=== PATIENT | female | born 1970 | race Caucasian/White ===

== ENCOUNTER 2019-11-22 19:12 | Emergency (ER) | payer OTHER, BC, SELFPAY ==
[2019-11-22 19:12] VITALS: BP 184/105; PULSE 79; RESP 18; TEMP 36.7; O2SAT 98; BMI 27.6
--- NOTE | 2019-11-22 20:54 | ED.VISSUMM ---
- ER Visit Summary Date of Service: 11/22/19 Chief Complaint: Right hand pain History of Present Illness: The patient is a 49 F who presents with right hand pain that has been constant for the past 3 months. Patient states she felt a pop while she was cutting meat. Patient states this happened while at work. Patient states the pain is been persistent. Patient has been using ice. Patient has been taking Tylenol with no improvement. Patient states her pain is aching but is sharp with certain movements and grasping things. Patient denies any paresthesias. Patient admits to weakness due to the pain. Physical Examination: Vital signs are stable. Patient is afebrile. Patient is in no acute distress. Musculoskeletal exam reveals tenderness and edema over the right third MCP joint. There is no erythema or warmth. There is no discharge or drainage. There is tenderness to palpation. There is no deformity noted. Range of motion was limited in all motions of the MP, PIP, and DIP joints of the right middle finger secondary to pain. Capillary refill was less than 2 seconds in all digits. Sensation was intact to light touch in all digits. Radial pulses are equal bilaterally. Test Results: X-rays of the right hand were obtained. There is no acute abnormality. This was interpreted by the radiologist and myself. Emergency Department Course and Treatment: Patient was given an AlumaFoam finger splint. Patient was instructed to ice and elevate the right hand. Patient was given restrictions for work. Patient was instructed to follow-up with a primary care physician or workman's comp physician. Patient understood and was agreeable with the plan. All questions were answered. Disposition: Discharge home Impression: Right hand pain This note was generated with [employer] dictation software. It may contain incorrect words, spelling, and punctuation that were not noted in review of the chart prior to signing ED Disposition - Plan for ED Patient: Disposition: Home or Assisted Living Diagnosis: Right hand pain Instructions: ED Acute Pain [facility] Referrals: NOT,DEFINED [NON-STAFF] - Gabriel Chandler DO [NON CLINICAL AFFILIATE] - 5-7 Days [facility] [GROUP OF PHYSICIANS] - 5-7 Days
--- NOTE | 2019-11-22 21:01 | RAD_ITS ---
STUDY: X-RAY - RIGHT HAND REASON FOR EXAM: Female, 49 years old. PAIN IN HAND FOR MONTHS, MOSTLY AROUND MIDDLE FINGER, SWELLING TECHNIQUE: 3 view(s) of the hand. COMPARISON: None. FINDINGS: Normal radiocarpal articulation. Normal distal radioulnar joint. Normal visualized carpal bones. Normal carpal articulations Normal carpometacarpal articulation of the thumb. Normal second through fifth carpometacarpal joints. Normal metacarpi. Normal metacarpophalangeal joint of the thumb. Normal interphalangeal joint of the thumb. Normal proximal and distal phalanges of the thumb. Normal metacarpophalangeal joints of the second through fifth fingers. Normal proximal interphalangeal joints of the second through fifth fingers. Mild degenerative changes of the DIP joints of the third through fifth digits Normal phalanges of the second through fifth fingers. The soft tissue structures are unremarkable. RAD/Hand Min 3 Views IMPRESSION: Mild degenerative changes. No acute fracture or other significant bony pathology Electronically Signed: Arthur Washington MD at 21:21 EDT , Service support ,
== END 2019-11-22 23:28 | disposition home or self-care (01) ==
PROVIDERS: Emergency Provider Emergency Medicine
DX: M79.641 Pain in right hand (principal); K21.9 Gastro-esophageal reflux disease without esophagitis
CPT/HCPCS: 73130; 99283

== ENCOUNTER → 2019-12-03 12:24 | Outpatient (CLI) | payer OTHER, SELFPAY ==
[2019-11-27 15:46] VITALS: BMI 27.6
--- NOTE | 2019-12-03 12:25 | MRI_ITS ---
STUDY: MRI RIGHT HAND REASON FOR EXAM: Right hand pain, right middle finger pain and swelling, history of cyst removal. TECHNIQUE: Standardized fat and water weighted pulse sequences were obtained in all 3 orthogonal planes. COMPARISON: Radiographs 11/22/2019. FINDINGS: FIRST DIGIT: Normal visualized first metacarpus. Normal metacarpophalangeal joint. Normal interphalangeal joint. Normal proximal, and distal phalanges. Normal flexor and extensor tendons. There is no soft tissue abnormality. SECOND DIGIT: Normal visualized second metacarpus. Normal metacarpophalangeal joint. Normal proximal and distal interphalangeal joints. Normal proximal, middle and distal phalanges. Normal flexor and extensor tendons. There is no soft tissue abnormality. THIRD DIGIT: Normal visualized third metacarpus. Normal metacarpophalangeal joint. Normal proximal interphalangeal joint. There is mild chondral thinning of the third distal interphalangeal joint (T2 sagittal image 24). Normal proximal, middle and distal phalanges. Normal flexor and extensor tendons. There is a small ganglion cyst at the palmar ulnar aspect of the flexor tendon sheath of the third digit at the level of the proximal phalangeal base (inversion recovery coronal images 7, 8; inversion recovery axial images 19, 20) measuring 0.15 x 0.8 x 0.7 cm (AP x transverse x length). FOURTH DIGIT: Normal visualized fourth metacarpus. Normal metacarpophalangeal joint. Normal proximal and distal interphalangeal joints. Normal proximal, middle and distal phalanges. Normal flexor and extensor tendons. There is a small ganglion cyst at the dorsal aspect of the flexor tendon sheath of the fourth digit at the level of the proximal phalangeal neck (inversion recovery coronal image 8; inversion recovery axial image 26) measuring 0.2 x 0.35 x 0.4 cm (AP x transverse x length). FIFTH DIGIT: Normal visualized fifth metacarpus. Normal metacarpophalangeal joint. Normal proximal interphalangeal joint. There is chondral thinning of the fifth proximal interphalangeal joint with subchondral cysts (T2 sagittal image 5). Normal proximal, middle and distal phalanges. Normal flexor and extensor tendons. There is no soft tissue abnormality. Normal visualized thenar and hypothenar muscles. Normal lumbricalis and interosseous muscles. MRI/Upper Ext/No Jt/ wo IMPRESSION: Small ganglion cyst of the flexor tendon sheath of the third digit. Small ganglion cyst of the flexor tendon sheath of the fourth digit. 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 Electronically Signed: Chinedu Watt MD at 13:48 EDT Tel , Service support ,
== END ==
PROVIDERS: Referring Provider Physician Assistant; Visit Provider Physician Assistant
DX: M79.641 Pain in right hand (principal)
CPT/HCPCS: 73218

== ENCOUNTER 2020-01-31 22:56 | Emergency (ER) | payer BC, SELFPAY ==
[2020-01-22 09:56] VITALS: BMI 27.6
[2020-01-31 22:56] VITALS: BP 188/130; PULSE 84; RESP 16; TEMP 36.3; O2SAT 99; BMI 28.1
--- NOTE | 2020-01-31 23:12 | ED.VIS.GEN ---
History of Present Illness Chief Complaint: Fall Narrative: This is a generally healthy 49-year-old female who presents after a fall. She tripped over the curb. She hit her right forearm and left knee. She has an abrasion over the anterior left knee. She also has swelling of the right forearm. Her friend was concerned this might be a blood clot, so brought her in to be checked. Past Medical History - Allergies and Home Meds Allergies/Adverse Reactions: Allergies No Known Allergies Allergy (Verified 01/31/20 22:58) Primary Care Physician: Care Physician,No Primary [Primary Care Provider] - Past Medical History: None Smoking Status: Current every day smoker Review of Systems All systems negative except as indicated General: Denies: Fever Cardiovascular: Denies: Chest pain Respiratory: Denies: Dyspnea Gastrointestinal: Denies: Abdominal pain Musculoskeletal: Reports: Extremity Pain. Denies: Back pain Neurological: Denies: Headache Physical Exam Vital Signs/Narrative: Vital Signs Temp Pulse Resp BP Pulse Ox 01/31/20 22:56 97.3 F L 84 16 188/130 H 99 Inital Vital Signs reviewed: Yes General: Well nourished Head: Normocephalic Eyes: EOMI ENT: Moist mucous membranes Neck: Supple Cardiovascular: Regular rate Respiratory: No distress Extremities: - - Patient has a hematoma over the mid right forearm, she has no pain with range of motion of the forearm elbow or wrist, no focal bony tenderness, there is an abrasion over the proximal anterior lower leg distal to the knee she has no knee tenderness no pain with range of motion Skin: Normal color Neurological: Alert Psychological: Normal affect Diagnostic/Tx/Re-eval - Medical Decision Making Patient states she was mainly here just to be checked for the hematoma. I do not believe x-rays are indicated. She was advised on supportive care including rest ice elevation. All questions answered at bedside, patient agreeable to this plan. Patient discharged. She was given a tetanus immunization booster here. ED Disposition - Plan for ED Patient: Disposition: Home or Assisted Living Diagnosis: Hematoma, Abrasion Instructions: ED Abrasion, ED Hematoma Referrals: Care Physician,No Primary [Primary Care Provider] -
[2020-01-31] MEDS: Diphth,Pertuss(Acell),Tet Vac 0.5 ML Vial IM (23:38)
== END 2020-01-31 23:54 | disposition home or self-care (01) ==
LOC: ED 23:18
PROVIDERS: Emergency Provider Emergency Medicine
DX: S50.11XA Contusion of right forearm, initial encounter (principal); S80.212A Abrasion, left knee, initial encounter; F17.200 Nicotine dependence, unspecified, uncomplicated; W01.0XXA Fall on same level from slipping, tripping and stumbling without subsequent striking against object, initial encounter
CPT/HCPCS: 90471; 90715; 99282

== ENCOUNTER 2020-02-07 09:30 | Outpatient (RCR) | payer OTHER, SELFPAY ==
[2020-01-01 09:58] VITALS: BMI 27.6
[2020-01-10 12:50] VITALS: BMI 27.6
--- NOTE | 2020-01-15 10:25 | HP.OTEVAL ---
Patient's Visit Information TOYIN QUINONEZ is a 49 year old F, referred to Occupational Therapy by GENE Amezcua, with a diagnosis of right MF sprain/ right hand pain. Date of Evaluation: 01/15/20 Occupational Therapist: Brooklyn Garcia, NICOLER/Daniela, CHT - Subjective This 49 year old female was seen for OT eval with dx of right MF pain- pt states she felt something odd in her finger in Feb. pt states she put it off and her finger did not get better- pt states she does ice on PRN basis. pt reports she does not have pain with her BADLs at this time. pt states she has not been back to work in three weeks. states she does not have a return to work date set at this time. - Pain right MF 0 Pain Intensity Range: 0, 1, 4 - ROM MP: right MF 0/90 PIP: right Mf 0/105 DIP: right MF 0/65 ROM Comments: pt demo ROM WNL. pt demo with increase right MF MCP mobility comparied to left with pain on ulnar side of MCP region - Strength Bpm Analyst: right 45# left 65# Lateral Pinch: right 10# left 12# Tripod Pinch: right 10# left 13# Tip-to-Tip Pinch: right 8# left 10# Strength Comments: pt demo with a decrease in right retail pricing coordinator and pinch strength - Edema Proximal Phalanx: right 20cm left 19cm - Sensation Sensation Comments: denies - Quick DASH-Disab of Arm,Shoulder& Hand Quick DASH Score: 45.0000 - Goals Goal:: Pt will demo a increase in right retail pricing coordinator strength by 15# to increase pts ind. with ADLS and IADLs by d/c Goal:: pt will report no pain greater than 1/10 with use of right UE with ADls and IADLS by d/c Goal:: edema will measure at a .5 cm reduction by d.c Goal:: pt will demo increase in right MF MCP joint stability by d/c. pt will demo understanding of use of k-tape for support by end of 2nd visit - Rehabilitation General Assessment: Pt demo with edema over right MF MCP region a increase in right MF MCP instability and a decrease in right retail pricing coordinator strength. Pt is limited with use of right hand for ADLs and IADLs and would benfit from skilled OT services 2-3x week for 12 visits. Today therapist instructed pt in use of k-tape and ice to decrease edema. Therapist will progress pt with PRE to gain strength as pt marilee to return pt to PLOF. pt agree to POC Rehabilitation Potential: Good - Anticipated Interventions Strengthening, Edema Control, Triggerpoint Release, Modalities, Orthoses, Joint Protection/Energy Conservation, Ergonomic Education - Visit Plan Frequency: 2-3x /Week Duration: 4 Weeks TEXT: Thank you for the opportunity to evaluate your patient. For Medicare and Medicare HMO plans, please review the plan of care and approve it. It will need to be FAXED BACK to us at [phone] for Medicare purposes. Please let me know if there are questions or concerns regarding this plan of care. Physician Signature: Date:
--- NOTE | 2020-02-07 10:13 | HP.OTDCSUM ---
It has been my pleasure to treat TOYIN QUINONEZ under orders from GENE Amezcua, for the diagnosis of right MF sprain/ right hand pain for a total of 10 visit(s). Please see the following information for a summary of their discharge status. % Improvement: 95 Objective/Function: R human resources representative 60#. Lateral pinch 10#. Tripod pinch 10#. pt demo the ability to form a composite fist without pain - pt reports ind with ADLS and IADLS at this time Patient Goals: Regain Strength, Decrease Swelling/Stiffness, Use Hand/Wrist/Arm Normally Again, Be More Independent in ADLS Goal:: Pt will demo a increase in right human resources representative strength by 15# to increase pts ind. with ADLS and IADLs by d/c Goal:: pt will report no pain greater than 1/10 with use of right UE with ADls and IADLS by d/c Goal:: edema will measure at a .5 cm reduction by d.c Goal:: pt will demo increase in right MF MCP joint stability by d/c. pt will demo understanding of use of k-tape for support by end of 2nd visit Plan: discharge Discharge Comments: pt has been seen for 10 OT visits. Pt reports she is 95% better and will return to work next week. Pt has demo the ability to form a composite fist with no pain. pt has met OT goals and D/C at this time. If there are questions or concerns regarding this patient's occupational therapy, please fell free to call me at [phone]. Thank you for the referral of this patient. Sincerely, Brooklyn Garcia, OTR/L, CHT
== END 2020-02-07 19:00 | disposition home or self-care (01) ==
LOC: OT 09:30
PROVIDERS: Referring Provider Physician Assistant; Visit Provider Physician Assistant
DX: S63.612D Unspecified sprain of right middle finger, subsequent encounter (principal)
CPT/HCPCS: 97035; 97110; 97140; 97166; 97530

== ENCOUNTER 2020-04-14 20:40 | Emergency (ER) | payer BC, SELFPAY ==
[2020-02-26 08:59] VITALS: BMI 28.1
[2020-04-14 20:40] VITALS: BP 115/69; PULSE 83; RESP 18; TEMP 36.2; O2SAT 98; BMI 29.6
[2020-04-14 20:48] VITALS: TEMP 36.2; BMI 29.6
--- NOTE | 2020-04-14 20:51 | ED.VIS.GEN ---
History of Present Illness Chief Complaint: Allergic Reaction Informant: Patient Onset: Today Context: Sudden Onset Timing: Continuous Current Severity: Moderate Maximum Severity: Moderate Narrative: The patient is a 49-year-old female with recent diagnosis of hypertension who was started on lisinopril that presents to the emergency department concern for allergic reaction. Patient states she has been in her normal state of health. She states that she and her friend had eaten cauliflower pizza. She states she sat before without issue. Shortly thereafter, she noticed that her face was burning. She had the band develop significant urticarial rash of her face, neck, and upper arms. She states that she was having dry mouth and was feeling lightheaded. She states she is never had reaction like this before. She denies any trouble speaking or swallowing. She denies any throat swelling or shortness of breath. She is had no nausea or vomiting. She denies any other new exposures. Prior similar symptoms: No Recent Illness/Hospitalization: No Past Medical History - Allergies and Home Meds Allergies/Adverse Reactions: Allergies No Known Allergies Allergy (Verified 02/26/20 08:59) Primary Care Physician: Care Physician,No Primary [NON-STAFF] - Prior records reviewed: Yes Past Medical History: - - Hypertension Surgical History: noncontributory Smoking Status: Never smoker Review of Systems General: Denies: Chills, Fever, Sweats Eyes: Denies: Visual changes - bilaterally, Diplopia ENT: Denies: Rhinorrhea, Sore throat Cardiovascular: Denies: Chest pain, Palpitations Respiratory: Denies: Dyspnea, Cough, Dyspnea on exertion Gastrointestinal: Denies: Abdominal pain, Nausea, Vomiting, Diarrhea, Melena, Hematochezia Genitourinary: Denies: Dysuria, Hematuria, Frequency Musculoskeletal: Denies: Back pain, Extremity Pain Skin: Reports: Rash. Denies: Wounds Neurological: Denies: Headache, Weakness, Numbness Physical Exam Vital Signs/Narrative: Vital Signs Temp Pulse Resp BP Pulse Ox 04/14/20 20:48 97.1 F L 04/14/20 20:40 97.1 F L 83 18 115/69 98 Inital Vital Signs reviewed: Yes General: Well nourished, Well developed, No Acute Distress Head: Normocephalic, Atraumatic Eyes: Perrl, EOMI ENT: Moist mucous membranes, No rhinorrhea Neck: Supple, Nontender Cardiovascular: Regular rate, Regular rhythm, No murmurs Respiratory: No distress, CTA bilaterally, Chest nontender Abdomen: Soft, Nontender, Nondistended, Normal bowel sounds Back: Nontender, Normal Inspection Extremities: Nontender, No edema Skin: Rash - Patient has facial urticaria, but no evidence of angioedema. There is urticaria on the anterior chest and upper arms. Neurological: Alert, Oriented x3, Cranial nerves II-XII grossly intact, Normal Strength, Normal Sensation Psychological: Normal affect, Normal Mood Diagnostic/Tx/Re-eval - Medical Decision Making The patient presents with allergic reaction. She denies any new exposures. She has been on lisinopril and Celexa for 3 weeks. I am not sure if this is medication mediated or different exposure. IV was established. The patient was treated with Benadryl, Solu-Medrol, and Pepcid. She was observed. Within 30 minutes, she is a total resolution of her rash. At this point, I am going to have her stop her new medications until she follows up with her primary care. I will keep her on a prednisone burst to prevent rebound. She will be discharged home. Impression 1. Allergic reaction to medication ED Disposition - Plan for ED Patient: Instructions: ED ADVERSE DRUG REACTION Allergic Prescriptions: Prednisone [Deltasone] 60 mg PO DAILY #15 tab Prescription Printed Referrals: Care Physician,No Primary [NON-STAFF] - Additional Instructions: Stop your lisinopril and Celexa until you follow-up with your primary care
[2020-04-14] MEDS: MethylPREDNISolone 125 MG/2 ML Vial IV (21:00)
[2020-04-14] MEDS: DiphenhydrAMINE 50 MG/ML Syringe IV (21:00)
[2020-04-14] MEDS: 0.9% Normal Saline 1,000 ML 1000 ML IV (21:04)
[2020-04-14] MEDS: Famotidine 200 MG/20 ML MDV 20 MG in 0.9% Normal Saline (Pres. free 8 ML 300 MG IV (21:07)
[2020-04-14 21:40] VITALS: BP 130/82; PULSE 78; RESP 16
[2020-04-14 22:15] VITALS: BP 136/79; PULSE 76; RESP 16; O2SAT 98
== END 2020-04-14 22:16 | disposition home or self-care (01) ==
LOC: ED 21:09
PROVIDERS: Emergency Provider Emergency Medicine; PCP Family Medicine
DX: L27.0 Generalized skin eruption due to drugs and medicaments taken internally (principal); R68.2 Dry mouth, unspecified; R42 Dizziness and giddiness; T46.4X5A Adverse effect of angiotensin-converting-enzyme inhibitors, initial encounter; T43.225A Adverse effect of selective serotonin reuptake inhibitors, initial encounter; Y92.9 Unspecified place or not applicable; I10 Essential (primary) hypertension
CPT/HCPCS: 96361; 96374; 96375; 99283; J7030; A4216; J3490

== ENCOUNTER 2024-03-02 21:07 | Emergency (ER) | payer SELFPAY ==
[2024-03-02 21:07] VITALS: BP 180/112; PULSE 97; RESP 19; TEMP 36.7; O2SAT 100; BMI 25.9
[2024-03-02 21:30] VITALS: BP 168/98; PULSE 77; RESP 18; O2SAT 98
--- NOTE | 2024-03-02 21:31 | EDS_ITS ---
HPI History of Present Illness Chief Complaint: General Illness [facility] Medical History no medical history Home Medications ?Medication ?Instructions ?Recorded ?Last Taken ?Type citalopram 10 mg tablet 10 mg PO DAILY 04/14/20 Unknown History lisinopril 10 mg tablet 10 mg PO DAILY 04/14/20 Unknown History loratadine 10 mg capsule 10 mg PO DAILY 04/14/20 Unknown History prednisone 20 mg tablet 60 mg (3 x 20 mg) PO DAILY #15 tabs 04/14/20 Unknown Rx benzonatate 100 mg capsule 100 mg PO TID PRN cough 5 days #15 03/02/24 Unknown Rx caps prednisone 20 mg tablet 20 mg PO DAILY #5 tabs 03/02/24 Unknown Rx Allergy/AdvReac Type Severity Reaction Status Date / Time No Known Allergies Allergy Verified 03/02/24 21:08 Social History (Updated 02/26/20 @ 09:15 by Ba MILLS, PA) Smoking Status: Never smoker EXAM Physical Exam Const Vital Signs: 03/02/24 21:07 03/02/24 21:19 03/02/24 21:30 Temperature 98.1 F Temperature Source Temporal Pulse Rate 97 77 Respiratory Rate 19 H 18 Respiratory Effort Normal Non-Labored Respiratory Pattern Normal Blood Pressure 180/112 H 168/98 H Blood Pressure Mean 134 121 Pulse Ox 100 98 Oxygen Delivery Method Room Air Room Air 03/02/24 21:41 03/02/24 21:55 Temperature Temperature Source Pulse Rate 106 H Respiratory Rate 22 H Respiratory Effort Respiratory Pattern Blood Pressure Blood Pressure Mean Pulse Ox 100 Oxygen Delivery Method Room Air MDM MDM MDM Narrative Medical decision making narrative: HISTORY OF PRESENT ILLNESS: 53-year-old female presents with concern for being sick for the last 6 weeks. She endorses cough, stuffy nose, chest cold. She states she has not seen a doctor. She further states per triage note that she was out drinking tonight had a couple beers the friend started having nausea vomiting and shortness of breath. She further states she has no chest pain. Notes episodes of vomiting prior to arrival but denies abdominal pain. Denies any recent travel or new foods. Denies any diarrhea. Denies any vaginal bleeding or troubles urination. The patient denies recent surgery in the last 4 weeks or immobilization in the last 3 days, denies previous diagnosis of DVT or PE, hemoptysis, unilateral leg swelling or malignancy with treatment the last 6 months or palliative. No estrogen use noted. REVIEW OF SYSTEMS: Pertinent positives: Cough, stuffy nose, shortness of breath, nausea vomiting Pertinent negatives: Leg swelling, syncope PHYSICAL EXAM: Nursing triage notes reviewed, Vital signs reviewed Constitutional: please see mdm HENT: MMM Eyes: Pupils equal round and reactive to light, Extraocular muscles intact Neck: No stridor, no JVD, full neck ROM Lungs: Clear to auscultation, No wheezing or rales. No increased work of breathing, no conversational dyspnea, no accessory muscle use, no nasal flaring. No respiratory distress noted Heart: Regular rate and rhythm, No murmurs, No rubs and No gallops, 2+ distal pulses (radial, femoral, posterior tibial) in all extremities Abdomen: Soft, there is no tenderness, rigidity, rebound or guarding, no obvious peritoneal signs, no palpable pulsatile abdominal masses, no auscultated abdominal bruit : No CVAT Extremities: No edema Neuro: No focal neurological deficits, cranial nerves II through XII intact, 5/5 strength in all extremities. Intact sensation to light touch in all extremities, 2+ reflexes bilateral patella tendons. Normal gait. No ataxia. Skin: No rash or lesions noted MEDICAL DECISION MAKING: Chief Complaint: As per HPI External records reviewed: No recent hospitalizations noted Factors affecting care: n hypertension, seasonal allergies Social determinants of health: Drinks alcohol [facility] Narrative: The patient was initially hypertensive with a blood pressure 180/112 otherwise afebrile saturating 100% room air. Lungs are clear without wheezing. No rales. No stigmata of VTE or heart failure. I considered the following differential diagnosis: COVID, flu, pneumonia, ACS, arrhythmia, PE, hypertensive emergency I obtained a broad lab and imaging workup to further elucidate the etiology the patient's complaints. While considered pulmonary embolism as a potential etiology I thought this was less likely given low risk Wells score, history and physical exam not suggestive ALL IMAGES (IF OBTAINED) HAVE BEEN PERSONALLY REVIEWED AND INTERPRETED BY MYSELF. EKG with normal sinus rhythm, normal axis, no intervals, no STEMI High-sensitivity troponin is negative, no evidence of myocardial ischemia BNP within normal limit suggestive of no heart failure BMP with mild hyponatremia, hypokalemia, no signs of metabolic acidosis or endorgan hypoperfusion I have personally reviewed the patient's chest x-ray. Chest x-ray is unremarkable for pulmonary edema, pneumothorax, pneumonia or focal cardiopulmonary abnormality. COVID, flu and RSV are negative The synthesis of the patient's history, physical exam, labs images suggest no acute (etiology specifically no signs of ACS, pneumonia, pneumothorax, COVID, flu, RSV, CHF. She is likely suffering from chronic blood work and changes along potentially chronic bronchitis, COPD will require outpatient therapy. Will prescribe Tessalon Perles and prednisone for cough relief at home. The patient and/or family, caregivers express understanding. The patient and/or family, caregivers agrees with the plan. Shared decision making: I will have a discussion with the patient and or visitors regarding risk/benefits of further testing or admission. They will be made aware of of the risk/benefits inherent in this decision they will be given the opportunity to voice understanding. Total critical care time today provided was at least 0 minutes. This excludes separately billable procedures. Critical care time (if documented) is secondary to the patient having high probability of clinically significant/life threatening deterioration in the patient's condition which required my urgent intervention. Impression: 1. Dyspnea 2. Cough 3. Hyponatremia 4. Hypokalemia Dispo: Discharge home This note was generated with [employer] dictation software. It may contain incorrect words, spelling, and punctuation that were not noted in review of the chart prior to signing. Lab Data Labs: Laboratory Results - last 24 hr 03/02/24 21:52 Sodium 131 L Potassium 3.2 L Chloride 97 L Carbon Dioxide 21.0 Anion Gap 13 BUN 10 Creatinine 0.64 Estim Creat Clear Calc 105.06 Est GFR (MDRD) Af Amer 123 Est GFR (MDRD) Non-Af 102 BUN/Creatinine Ratio 15.5 Glucose 102 Calcium 9.1 Troponin I High Sens 4 B-Natriuretic Peptide 96.1 Radiography Diagnostic Testing: Clinical Impression(s) from Imaging Studies Chest X-Ray 03/02/24 21:55 IMPRESSION: No radiographic evidence of acute cardiopulmonary disease. Electronically Signed: Kedar Paulson DO at 22:10 EDT , Discharge Plan Triage Chief Complaint: General Illness ED Provider: Becca,Guy Dx/Rx/DC Orders Instructions: ED Dyspnea Prescriptions: New prednisone 20 mg tablet 20 mg PO DAILY Qty: 5 0RF benzonatate 100 mg capsule 100 mg PO TID PRN (Reason: cough) 5 Days Qty: 15 0RF No Action citalopram 10 MG tablet 10 mg PO DAILY lisinopril 10 MG tablet 10 mg PO DAILY loratadine 10 MG capsule 10 mg PO DAILY prednisone 20 MG tablet 60 mg PO DAILY Qty: 15 0RF Rx Instructions: With food Primary Care Provider: Arthur Gutierres Referrals: Arthur Gutierres MD [Primary Care Provider] - Activity Restrictions/Additional Instructions: Thank you for trusting us with your care today! Your labs images were reassuring. There is no signs of heart failure, heart attack, significant anemia, COVID, flu or bacterial pneumonia. He may be suffering from chronic bronchitis. If you smoke this may be an early sign of COPD. Please take Tylenol (2 pills, 650 mg), ibuprofen (2 pills, 400 mg) every 6 hours as needed for pain and fever control. Please take prednisone for next 5 days to decrease inflammation. Please take Tessalon Perles as needed for cough relief. Please return to the emergency department if your symptoms change or worsen. Please follow with your primary care physician for further outpatient evaluation and management. Print Language: Macedonian Disposition Disposition: Home, Self Care
--- NOTE | 2024-03-02 21:39 | EKG12_ITS ---
Test Reason : GEN ILL Blood Pressure : / mmHG Vent. Rate : 081 BPM Atrial Rate : 081 BPM P-R Int : 166 ms QRS Dur : 082 ms QT Int : 376 ms P-R-T Axes : 050 035 016 degrees QTc Int : 436 ms Normal sinus rhythm Normal ECG Confirmed by Anthony Henson ([id number]), news assignment editor PHOEBE BONILLA ([id number]) on 03/04/2024 10:24:31 AM Referred By: Confirmed By:Anthony Henson
[2024-03-02 21:41] VITALS: O2SAT 100
[2024-03-02] MEDS: Benzonatate 100 MG Capsule PO (21:49)
[2024-03-02] MEDS: Albuterol Sulfate 8 gm Inhaler (60 puffs) 4 PUFF INHALATION (21:49)
[2024-03-02] MEDS: 0.9% Normal Saline (1000mL) 1,000 ML 999 ML IV (21:50)
[2024-03-02 21:55] VITALS: PULSE 106; RESP 22
--- NOTE | 2024-03-02 21:55 | RAD_ITS ---
EXAM: XR CHEST, 1 VIEW CLINICAL INDICATION: Cough, shortness of breath TECHNIQUE: Frontal view of the chest. COMPARISON: No relevant prior studies available. FINDINGS: LUNGS AND PLEURAL SPACES: No significant abnormality. No consolidation or edema. No pneumothorax. No effusion. HEART: No significant abnormality. Cardiac silhouette not enlarged. MEDIASTINUM: Central airways and mediastinal contour are unremarkable. BONES/JOINTS: No significant abnormality. No acute fracture. SOFT TISSUES: No significant abnormality. RAD/Chest 1 View (Portable) IMPRESSION: No radiographic evidence of acute cardiopulmonary disease. Electronically Signed: Kedar Paulson DO at 22:10 EDT ,
[2024-03-02 22:18] LABS: BNP,B-Type NATRIURETIC PEPTIDE 96.1 pg/mL (0-100)
[2024-03-02 22:22] LABS: Anion Gap 13 (5-15); BUN 10 mg/dL (7-18); BUN/Creat Ratio 15.5 RATIO (10-20); Calcium,Total 9.1 mg/dL (8.5-10.1); Chloride 97 mmol/L (98-107); Creatinine, Serum 0.64 mg/dL (0.55-1.02); EST Glomerular Filtration Rate 102 mL/min (>60); Est Glom Filt Rate - Afr Amer 123 mL/min (>60); Estimated Creatinine Clearance 105.06 ml/min; Glucose 102 mg/dL (74-106); Potassium 3.2 mmol/L (3.5-5.1); Sodium Level 131 mmol/L (136-145); Troponin-I HS 4 pg/mL (3.0-54.0)
[2024-03-02 23:15] VITALS: BP 172/89; PULSE 72; RESP 18; TEMP 36.7; O2SAT 96
== END 2024-03-02 23:16 | disposition home or self-care (01) ==
PROVIDERS: Emergency Provider Emergency Medicine; PCP Family Medicine; Visit Provider Emergency Medicine
DX: R06.02 Shortness of breath (principal); R05.9 Cough, unspecified; E87.1 Hypo-osmolality and hyponatremia; E87.6 Hypokalemia
CPT/HCPCS: 71045; 80048; 83880; 84484; 87631; 93005; 94640; 96360; 99284; J7030; A4216

== ENCOUNTER 2024-05-31 03:24 | Emergency (ER) | payer SELFPAY ==
[2024-05-31 03:24] VITALS: BP 176/101; PULSE 99; RESP 18; TEMP 37; O2SAT 99; BMI 25.2
--- NOTE | 2024-05-31 03:40 | RAD_ITS ---
EXAM: XR RIGHT FOOT COMPLETE, 3 OR MORE VIEWS CLINICAL INDICATION: pain TECHNIQUE: Frontal, lateral and oblique views of the right foot. COMPARISON: No relevant prior studies available. FINDINGS: BONES/JOINTS: Unremarkable. No acute fracture. No subluxation. Normal alignment. Preservation of the joint space. No sclerotic or destructive changes observed. SOFT TISSUES: Unremarkable. No soft tissue swelling or gas. No radiopaque foreign body. RAD/Foot min 3 Views IMPRESSION: Negative right foot x-rays. Electronically Signed: Anthony Roberson MD at 5:47 EST ,
--- NOTE | 2024-05-31 03:50 | RAD_ITS ---
EXAM: XR RIGHT ANKLE COMPLETE, 3 OR MORE VIEWS CLINICAL INDICATION: pain TECHNIQUE: Frontal, lateral and oblique views of the right ankle. COMPARISON: No relevant prior studies available. FINDINGS: BONES/JOINTS: Unremarkable. No acute fracture. No subluxation. Normal alignment. Preservation of the joint space. No sclerotic or destructive changes observed. SOFT TISSUES: Unremarkable. No soft tissue swelling or gas. No radiopaque foreign body. RAD/Ankle min 3 Views IMPRESSION: Negative right ankle x-rays. Electronically Signed: Anthony Roberson MD at 5:46 EST ,
--- NOTE | 2024-05-31 04:47 | EDS_ITS ---
HPI History of Present Illness Chief Complaint: Fall Informant: patient Narrative Narrative: Patient is a 53-year-old female who reports no significant past medical history. She states around 8 PM today she slipped off the stairs and injured her right foot/ankle. She denies striking her head or any loss of consciousness. She denies any history of bleeding disorder or blood thinner use. She states she was able to get back up and ambulate following the fall. She reports she went to bed and then she woke up and had increased pain and difficulty ambulating when she tried to put pressure on the right foot. With concern for fracture she presents for evaluation. [facility] no medical history Home Medications ?Medication ?Instructions ?Recorded ?Last Taken ?Type citalopram 10 mg tablet 10 mg PO DAILY 04/14/20 Unknown History loratadine 10 mg capsule 10 mg PO DAILY 04/14/20 Unknown History benzonatate 100 mg capsule 100 mg PO TID PRN cough 5 days #15 03/02/24 Unknown Rx caps Allergy/AdvReac Type Severity Reaction Status Date / Time No Known Allergies Allergy Verified 05/31/24 03:24 Social History (Updated 02/26/20 @ 09:15 by Ba MILLS, PA) Smoking Status: Light Smoker (<10/day) ROS ROS ED Constitutional Constitutional ED: Denies chills or fever(s) Eyes Eyes: Denies blurry vision or change in vision ENT ENT ED: Denies sore throat Cardiovascular Cardiovascular: Reports other Details: Negative syncope ; Denies chest pain Respiratory/Chest Respiratory/Chest: Denies cough or dyspnea Gastrointestinal Gastrointestinal: Denies abdominal pain, diarrhea, nausea or vomiting Genitourinary Genitourinary ED: Reports dysuria Musculoskeletal Musculoskeletal: Reports other Details: Positive right foot and ankle pain ; Denies back pain or neck pain Integumentary Denies Abrasions Neurologic Neurologic: Denies headache(s) or paresthesias Hematologic/Lymphatic Hematologic/Lymphatic: Denies easy bleeding or easy bruising EXAM Physical Exam Const Vital Signs: 05/31/24 03:24 05/31/24 03:24 05/31/24 05:01 Temperature 98.6 F 97.5 F L Temperature Source Oral Pulse Rate 99 97 Respiratory Rate 18 18 Respiratory Effort Normal Non-Labored Respiratory Depth Normal Respiratory Pattern Normal Blood Pressure 176/101 H 151/94 H Blood Pressure Mean 126 113 Pulse Ox 99 98 Oxygen Delivery Method Room Air Room Air Positive well nourished and well developed General Appearance ED: well developed HEENT HEENT Narrative: Normocephalic atraumatic No signs of depressed or basilar skull fracture Eyes PERRL and EOMs intact bilaterally General Eye ED: Negative for scleral icterus Neck supple Neck Narrative: No bony deformity or step-off of the cervical spine no midline tenderness to palpation Chest Wall palpation of chest normal Resp normal respiratory effort and clear to auscultation bilaterally Cardio regular rate and regular rhythm Back/Spine Back/Spine Narrative: No bony deformity or step-off of the thoracic or lumbar spine no midline tenderness to palpation Extremity Extremity Narrative: Pelvis is stable there is no shortening or external rotation of either lower extremity Bilateral lower extremities are neurovascularly intact There is soft tissue swelling just below the right lateral malleolus as well as soft tissue swelling to the dorsal aspect of the right foot over top the second and third metatarsal. There is faint ecchymosis over top the metatarsals as well. However there is no obvious bony deformity or joint effusion. Achilles tendon is intact and ankle ligaments are stable. No subungual hematoma Remainder of the exam is normal Neuro oriented x3, CN's II-XII intact bilaterally and no sensory deficits noted Sensorium / Orientation: alert Psych mental status grossly normal Skin Skin Narrative: Soft tissue swelling with faint ecchymosis to the right foot/ankle as documented above MDM MDM MDM Narrative Medical decision making narrative: Patient presented to the ER hypertensive but otherwise with stable vitals. She reported a mechanical fall and therefore I felt no need for cardiac or syncope workup. She denied striking her head any loss of consciousness or history of bleeding disorders/blood thinner use there is no need for head CT. Patient did not have any signs of compartment syndrome. With bruising swelling and pain there is concern for foot/metatarsal fracture versus ankle fracture versus dislocation versus contusion or sprain. Therefore ankle and foot x-rays were obtained. X-rays revealed no acute bony pathology indicating patient has a right ATFL sprain as well as foot contusion. She be placed in a walking boot to help with ambulation from the sprain and advised to use Tylenol Motrin for pain control from the contusion but without acute fracture dislocation ligament or tendon injury there is no need for further workup and she is otherwise safe for discharge History & Record Review Discussion w/independent historian: Patient Radiography Diagnostic Testing: Clinical Impression(s) from Imaging Studies Foot X-Ray 05/31/24 03:40 IMPRESSION: Negative right foot x-rays. Electronically Signed: Anthony Roberson MD at 5:47 EST , Ankle X-Ray 05/31/24 03:50 IMPRESSION: Negative right ankle x-rays. Electronically Signed: Anthony Roberson MD at 5:46 EST , X-ray of the right foot as interpreted by the emergency medicine physician reveals no acute fracture dislocation or joint effusion X-ray of the right ankle as interpreted by the emergency medicine physician reveals no acute fracture dislocation or joint effusion Discharge Plan Triage Chief Complaint: Fall ED Provider: Lucian Kaufman Dx/Rx/DC Orders Clinical Impression: Contusion of foot, right, Right ankle sprain, Hypertension Instructions: Understanding Ankle Sprain, ED Foot Contusion Prescriptions: No Action citalopram 10 MG tablet 10 mg PO DAILY loratadine 10 MG capsule 10 mg PO DAILY benzonatate 100 mg capsule 100 mg PO TID PRN (Reason: cough) 5 Days Qty: 15 0RF Primary Care Provider: Arthur Gutierres Referrals: Arthur Gutierres MD [Primary Care Provider] - Activity Restrictions/Additional Instructions: Please wear your walking boot for stabilization and ice the area to reduce pain and speed healing. Continue with Tylenol and/or Motrin for pain control and return to the ER should you have any further concern Print Language: Surinamese Disposition Disposition: Home, Self Care Discharge Date/Time: 05/31/24 05:01
[2024-05-31 05:01] VITALS: BP 151/94; PULSE 97; RESP 18; TEMP 36.4; O2SAT 98
== END 2024-05-31 05:01 | disposition home or self-care (01) ==
PROVIDERS: Emergency Provider Emergency Medicine; PCP Family Medicine; Visit Provider Emergency Medicine
DX: S93.431A Sprain of tibiofibular ligament of right ankle, initial encounter (principal); S90.31XA Contusion of right foot, initial encounter; W10.8XXA Fall (on) (from) other stairs and steps, initial encounter; I10 Essential (primary) hypertension; F17.200 Nicotine dependence, unspecified, uncomplicated
CPT/HCPCS: 73610; 73630; 99283